=== PATIENT | male | born 1960 | race Caucasian/White ===

== ENCOUNTER → 2020-04-12 | Outpatient (CLI) | payer OTHER | LOC: CAT 07:36 | PROVIDERS: ATTEND Family Medicine | DX: Z13.6 Encounter for screening for cardiovascular disorders (principal); I25.10 Atherosclerotic heart disease of native coronary artery without angina pectoris; E78.00 Pure hypercholesterolemia, unspecified ==

== ENCOUNTER → 2020-05-26 | Outpatient (CLI) | payer BC, OTHER | LOC: SJCVCIMAG 16:14 | PROVIDERS: ATTEND Internal Medicine Cardiovascular Disease | DX: I65.23 Occlusion and stenosis of bilateral carotid arteries (principal) ==

== ENCOUNTER → 2020-06-21 | Outpatient (CLI) | payer BC, OTHER | LOC: SJCVCIMAG 07:43 | PROVIDERS: ATTEND Internal Medicine Cardiovascular Disease | DX: I44.0 Atrioventricular block, first degree (principal); I51.7 Cardiomegaly; R55 Syncope and collapse; I25.10 Atherosclerotic heart disease of native coronary artery without angina pectoris ==

== ENCOUNTER 2021-09-07 04:37 | Emergency (ER) | payer BC, OTHER ==
[~2021-09-07] VITALS: Ht 167.6 cm; Wt 104.3 kg
[2021-09-07] MEDS ORDERED: ASA81BEC PO (05:05)
[2021-09-07] MEDS ORDERED: LOMOTIL TABLET1 EACH PO (05:06)
[2021-09-07] MEDS ORDERED: ROSUVASTATIN CA20 MG PO (05:06)
[2021-09-07] MEDS ORDERED: NORCO5 PO (05:06)
[2021-09-07] MEDS ORDERED: LISINOPRIL20 MG PO (05:07)
[2021-09-07] MEDS ORDERED: GRALISE1 EAC1 PO (05:08)
[2021-09-07 06:18] LABS: CALCIUM 9.1 mg/dL (8.5-10.1); CREATININE 0.6 mg/dL (0.7-1.3); POTASSIUM 4.7 mmol/L (3.5-5.1)
--- NOTE | 2021-09-07 07:03 | EKG ---
[address] [place] [facility]) [place] [address] ELECTROCARDIOGRAM REPORT Name: MI TSAI Room #: REG [facility]#: [id number] Admission: 09/07/21 Attend Phys: Discharge: Date of : 60 Report #: [id number] [facility] ED Test Date: 2021-09-07 Test Time: 05:15:21 Pat Name: MI TSAI Department: Room: Gender: M Emergency Registrar: : [id number] Requested By: Guy Morris Order Number: [id number] MD: Eren Smith Measurements Intervals [place] Rate: 78 P: 14 NC: 244 QRS: 48 QRSD: 81 T: 56 QT: 369 QTc: 421 Interpretive Statements Sinus rhythm Prolonged NC interval Abnormal R-wave progression, early transition No previous ECG available for comparison Electronically Signed On 09-07-2021 7:03:12 RESEARCH EXECUTIVE by Eren Smith [email or web address] <ELECTRONICALLY SIGNED> By: Eren Smith MD, [facility] 09/07/21 0703 0515 Eren Smith MD, FACC /EPI
[2021-09-07 07:06] LABS: ABSOLUTE NEUTROPHILS 3.7 thou/uL (1.4-8.2); BASOPHILS 0.7 % (0.0-2.0); EOSINOPHILS 1.3 % (0.0-3.0); HEMATOCRIT 38.4 % (42.0-52.0); HEMOGLOBIN 12.6 gm/dL (14.0-18.0); LYMPHOCYTES 13.9 % (24.0-44.0); MCHC 32.9 g/dL (28.0-37.0); MCV 97.1 fL (80.0-100.0); MONOCYTES 9.1 % (1.0-8.0); PLATELET COUNT 210 thou/uL (150-400); RBC 3.95 mil/uL (4.50-6.00); RDW 16.2 % (10.5-14.5); WBC 4.9 thou/uL (4.0-11.0)
[2021-09-07] MEDS ORDERED: DEMADEX20 MG PO (09:27)
[2021-09-07 09:38] VITALS: BP 135/83
== END 2021-09-07 09:39 | disposition home or self-care (01) ==
LOC: ER 04:37
PROVIDERS: Emergency Medicine
DX: R55 Syncope and collapse (principal); Z20.822 Contact with and (suspected) exposure to COVID-19; Z79.82 Long term (current) use of aspirin; Z79.899 Other long term (current) drug therapy; Z88.0 Allergy status to penicillin